=== PATIENT | male | born 1955 | race Caucasian/White ===

== ENCOUNTER 2016-10-15 20:26 | Emergency (ER) | payer BC ==
[~2016-10-15] VITALS: Ht 185.4 cm; Wt 93.2 kg
[2016-10-15 20:34] VITALS: BP 133/77; TEMP 98.5
[2016-10-15] MEDS ORDERED: ROXICODONE 55 MG/TAB PO (20:39)
[2016-10-15] MEDS ORDERED: ULTRAM 50MG TAB50 MG PO (20:39)
[2016-10-15] MEDS ORDERED: NORCO 325 MG-7.1 TAB PO (20:39)
[2016-10-15] MEDS ORDERED: XARELTO10 MG PO (21:55)
[2016-10-15 22:58] VITALS: PULSE 88
== END 2016-10-15 23:02 | disposition home or self-care (01) ==
LOC: COL.ER 20:26
DX: G89.18 Other acute postprocedural pain (principal); M25.561 Pain in right knee; Z96.651 Presence of right artificial knee joint
CPT/HCPCS: J1170

== ENCOUNTER → 2016-10-28 | Outpatient (REF) ==
[~2016-10-28] MED LIST: NORCO 325 MG-7.1 TAB PO; ROXICODONE 55 MG/TAB PO; ULTRAM 50MG TAB50 MG PO; XARELTO10 MG PO
== END ==
LOC: ZLAB.WCH 10:33
DX: Z01.89 Encounter for other specified special examinations (principal)

== ENCOUNTER → 2018-10-26 | Outpatient (REF) ==
[2018-10-26 16:06] LABS: PSA-TOTAL 1.77 ng/mL (0-4)
[2018-10-26 16:42] LABS: THYROID STIMULATING HORMONE 2.6 uIU/mL (0.465-4.680)
== END ==
LOC: ZLAB.WCH 15:10
PROVIDERS: Internal Medicine
DX: Z01.89 Encounter for other specified special examinations (principal)
CPT/HCPCS: G0103